=== PATIENT | female | born 1945 | race Caucasian/White ===

== ENCOUNTER 2016-09-25 15:45 | Emergency (ER) | payer MEDICARE ==
[2016-09-25] MEDS ORDERED: BABY ASPIRIN 81 MG CHEW PO ONE (15:55)
[2016-09-25 16:01] LABS: BASOPHIL % 0.2 % (0.0-0.4); Eosinophil % 7.9 % (0.00-5.0); Granulocytes % 47.6 % (36.0-66.0); Lymphocytes % 33.4 % (24.0-44.0); Mean Cell Volume 84.7 fl (78-100); Mean Corpuscular Hemoglobin 29.4 pg (26-32); Mean Platelet Volume 9.7 fl (6-9.5); Monocytes % 10.9 % (0.0-12.0); Platelet Count 201 K/mm3 (150-450); Red Blood Count 4.25 M/mm3 (4.1-5.4); Red Cell Distribution Width 13.2 % (11.5-14.0); White Blood Count 5.1 K/mm3 (4.0-10.5)
--- NOTE | 2016-09-25 16:01 | ERPHSYRPT ---
<EMMANUEL CERRATO - Last Filed: 09/25/16 18:56> - History of Present Illness Time Seen by Provider: 09/25/16 15:55 Historian: patient, family (daughter) Physician History: CC:Chest pain Hx: 71 y/o patient of Dr Borden/Corina. She has hx of HTN, PRESS syndrome. She has recent burning in left chest associated with exertion or movement of the arm. Not short of breath. Intermittent. Last a few minutes at a time. No hx of heart problems. No current pain. Timing/Duration: day(s) (few ), intermittent Quality: burning, sharpness Chest Pain Radiation: arm Severity of Pain-Max: moderate Severity of Pain-Current: moderate Aspirin Treatment Today: 81 mg x 2, provided by ED Allergies/Adverse Reactions: cefaclor [From Ceclor] Allergy (Mild, Verified 09/25/16 16:11) Home Medications: Amitriptyline HCl [Elavil] 50 mg PO HS 12/09/12 [History] Atorvastatin Calcium [Lipitor] 80 mg PO HS 12/09/12 [History] Letrozole [Femara] 2.5 mg PO HS 12/09/12 [History] Paroxetine HCl [Paxil] 10 mg PO DAILY 12/09/12 [History] Carvedilol 6.25 mg [Coreg 6.25 MG] 6.25 mg PO BID 09/25/16 [History] Levothyroxine Sodium 25 Mcg [Synthroid 25 Mcg] 25 mcg PO DAILY 09/25/16 [ History] Quetiapine Fumarate [Seroquel] 100 mg PO HS 09/25/16 [History] Valsartan/Hydrochlorothiazide [Valsartan-Hctz 160-12.5 mg Tab] 1 tablet PO BID 09/25/16 [History] Hx Tetanus, Diphtheria Vaccination/Date Given: No Hx Influenza Vaccination/Date Given: Yes Hx Pneumococcal Vaccination/Date Given: No - Review of Systems Constitutional: No Fever, No Chills Eyes: No Symptoms Ears, Nose, & Throat: No Symptoms Respiratory: No Cough, No Dyspnea Cardiac: Chest Pain, No Edema, No Syncope Abdominal/Gastrointestinal: No Abdominal Pain, No Nausea, No Vomiting Musculoskeletal: No Back Pain Skin: No Rash Neurological: No Headache All Other Systems: Reviewed and Negative - Past Medical History Pertinent Past Medical History: Yes Neurological History: No Pertinent History Cardiac History: High Cholesterol Respiratory History: No Pertinent History Endocrine Medical History: Hypothyroidism Musculoskeletal History: Degenerative Disk Disease GI Medical History: No Pertinent History History: No Pertinent History Psycho-Social History: Other Female Reproductive Disorders: Breast Cancer Other Medical History: Breast CA. Bilateral mastectomy - Past Surgical History Past Surgical History: Yes Gastrointestinal: Cholecystectomy Female Surgical History: Mastectomy Other Surgical History: carpal tunnel. back surgery due to scoliosis - Social History Smoking Status: Never smoker Exposure to second hand smoke: No Drug Use: none Patient Lives Alone: No - Physical Exam General Appearance: alert Eye Exam: PERRL/EOMI Ears, Nose, Throat Exam: normal ENT inspection, moist mucous membranes Neck Exam: normal inspection, non-tender, supple Respiratory Exam: normal breath sounds, lungs clear Cardiovascular Exam: regular rate/rhythm Gastrointestinal/Abdomen Exam: soft, No tenderness, No distention Back Exam: normal inspection, normal range of motion Extremity Exam: normal inspection, normal range of motion Neurologic Exam: alert, oriented x 3, cooperative, sensation nml, No motor deficits Skin Exam: warm, dry, No rash - Course Nursing assessment & vital signs reviewed: Yes EKG Interpreted by Me: RATE (82), Sinus Rhythm, NORMAL AXIS, Right Bundle Branch Block (presumed old per family) Ordered Tests: Active Orders 24 hr Category Date Time Status Sales Operations Analyst STAT Care 09/25/16 15:55 Active EKG-ER Only STAT Care 09/25/16 15:55 Active IV Insertion STAT Care 09/25/16 15:55 Active Pulse Oximetry (ED) STAT Care 09/25/16 15:55 Active CHEST 1 VIEW (PORTABLE) Stat Exams 09/25/16 15:55 Completed CBC W DIFF Stat Lab 09/25/16 15:59 Completed CMP Stat Lab 09/25/16 15:59 Completed TROPONIN Q3H Lab 09/25/16 15:59 Completed TROPONIN Q3H Lab 09/25/16 19:00 Completed TROPONIN Q3H Lab 09/25/16 22:00 Ordered TROPONIN Q3H Lab 09/26/16 01:00 Ordered TROPONIN Q3H Lab 09/26/16 04:00 Ordered Medication Summary Discontinued Medications Generic Name Dose Route Start Last Admin Trade Name Freq PRN Reason Stop Dose Admin Aspirin 162 mg 09/25/16 15:55 09/25/16 16:05 Baby Aspirin 81 Mg Chew PO 09/25/16 15:56 162 mg STAT ONE Administration Aspirin Confirm 09/25/16 16:03 Baby Aspirin 81 Mg Chew Administered 09/25/16 16:04 Dose 162 mg .ROUTE .STK-MED ONE Famotidine 20 mg 09/25/16 16:48 09/25/16 16:59 Pepcid 20 Mg Vial IV 09/25/16 16:49 20 mg STAT ONE Administration Famotidine Confirm 09/25/16 16:50 Pepcid 20 Mg Vial Administered 09/25/16 16:51 Dose 20 mg IV .STK-MED ONE Lab/Rad Data: Laboratory Result Diagrams 09/25/16 15:59 09/25/16 15:59 Laboratory Results 09/25/16 09/25/16 09/25/16 Range/Units 19:00 15:59 15:59 WBC (4.0-10.5) K/mm3 RBC (4.1-5.4) M/mm3 Hgb (12.0-16.0) gm/dl Hct (35-47) % MCV (78-100) fl MCH (26-32) pg MCHC (32-36) g/dl RDW (11.5-14.0) % Plt Count (150-450) K/mm3 MPV (6-9.5) fl Gran % (36.0-66.0) % Lymphocytes % (24.0-44.0) % Monocytes % (0.0-12.0) % Eosinophils % (0.00-5.0) % Basophils % (0.0-0.4) % Basophils # (0-0.4) Sodium 141 (136-145) mEq/L Potassium 3.8 (3.5-5.1) mEq/L Chloride 107 (98-107) mEq/L Carbon Dioxide 27.3 (21-32) mEq/L Anion Gap 10.1 (5-15) MEQ/L BUN 22 H (9-20) mg/dL Creatinine 0.87 (0.55-1.30) mg/dl Estimated GFR > 60 ML/MIN Glucose 92 (70-110) MG/DL Calcium 8.8 (8.5-10.1) mg/dL Total Bilirubin 0.7 (0.2-1.0) mg/dL AST 32 (15-37) U/L ALT 45 (12-78) U/L Alkaline Phosphatase 93 (46-116) U/L Troponin I < 0.017 < 0.017 (0.000-0.056) ng/ml Serum Total Protein 7.0 (6.4-8.2) gm/dL Albumin 3.8 (3.4-5.0) g/dL 09/25/16 Range/Units 15:59 WBC 5.1 (4.0-10.5) K/mm3 RBC 4.25 (4.1-5.4) M/mm3 Hgb 12.5 (12.0-16.0) gm/dl Hct 36.0 (35-47) % MCV 84.7 (78-100) fl MCH 29.4 (26-32) pg MCHC 34.7 (32-36) g/dl RDW 13.2 (11.5-14.0) % Plt Count 201 (150-450) K/mm3 MPV 9.7 H (6-9.5) fl Gran % 47.6 (36.0-66.0) % Lymphocytes % 33.4 (24.0-44.0) % Monocytes % 10.9 (0.0-12.0) % Eosinophils % 7.9 H (0.00-5.0) % Basophils % 0.2 (0.0-0.4) % Basophils # 0.01 (0-0.4) Sodium (136-145) mEq/L Potassium (3.5-5.1) mEq/L Chloride (98-107) mEq/L Carbon Dioxide (21-32) mEq/L Anion Gap (5-15) MEQ/L BUN (9-20) mg/dL Creatinine (0.55-1.30) mg/dl Estimated GFR ML/MIN Glucose (70-110) MG/DL Calcium (8.5-10.1) mg/dL Total Bilirubin (0.2-1.0) mg/dL AST (15-37) U/L ALT (12-78) U/L Alkaline Phosphatase (46-116) U/L Troponin I (0.000-0.056) ng/ml Serum Total Protein (6.4-8.2) gm/dL Albumin (3.4-5.0) g/dL - Progress Progress Note: 09/25/16 16:25 Procedures: [id number] RAD/CHEST 1 VIEW (PORTABLE) Indication: Chest pain. Comparison: None Portable chest demonstrates normal heart and lungs. Bony thorax intact with elongated thoracolumbar dextroscoliosis and multilevel spinal hardware. Reported by: SLY LESLIE DO Signed by: SLY LESLIE DO Signed date/ time: 09/25/16 1615 09/25/16 16:57 Patient remains pain free. Troponin negative. Called Dr Aguilar her private director acute and he agrees with 3 hour troponin and office follow up if stable. 09/25/16 18:56 Pt stable. Await 3 hour troponin. If negative will release with instructions to follow up with Dr Aguilar. Counseled pt/family regarding: lab results, diagnosis, need for follow-up, rad results - Departure Departure Disposition: Home Clinical Impression: Atypical chest pain Condition: Stable Critical Care Time: No Referrals: SERGIO BORDEN MD [Primary Care Provider] - DOUGLAS AGUILAR MD [NON-STAFF PHY W/O PRIVILEGES] - Instructions: Chest Pain Additional Instructions: Call tomorrow to see Dr Aguilar. Take baby asa daily. Return for problems or concerns. <TRISTEN DIAZ. - Last Filed: 09/25/16 19:33> - Progress Progress: unchanged Air Movement: good Progress Note: 09/25/16 19:31 Pt care discussed with Dr. Cerrato and care accepted at 19:00. Counseled pt/family regarding: lab results, diagnosis, rad results - Departure Time of Disposition: 19:33 Departure Disposition: Home Critical Care Time: No
[2016-09-25] MEDS ORDERED: BABY ASPIRIN 81 MG CHEW ONE (16:03)
--- NOTE | 2016-09-25 16:15 | XRAY ---
Indication: Chest pain. Comparison: None Portable chest demonstrates normal heart and lungs. Bony thorax intact with elongated thoracolumbar dextroscoliosis and multilevel spinal hardware.
[2016-09-25 16:23] LABS: ALBUMIN 3.8 g/dL (3.4-5.0); ALKALINE PHOSPHATASE 93 U/L (46-116); ANION GAP 10.1 MEQ/L (5-15); BILIRUBIN,TOTAL 0.7 mg/dL (0.2-1.0); BLOOD UREA NITROGEN 22 mg/dL (9-20); CHLORIDE 107 mEq/L (98-107); Carbon Dioxide 27.3 mEq/L (21-32); Glucose 92 MG/DL (70-110); Potassium 3.8 mEq/L (3.5-5.1); SGOT/AST 32 U/L (15-37); SGPT/ALT 45 U/L (12-78); SODIUM 141 mEq/L (136-145)
[2016-09-25] MEDS ORDERED: Pepcid 20 MG VIAL IV ONE ×2 (16:48→16:50)
[2016-09-25 19:36] VITALS: BP 139/68; PULSE 67; O2SAT 99
== END 2016-09-25 19:39 | disposition home or self-care (01) ==
LOC: ED 15:45
DX: R07.89 Other chest pain (principal); E78.00 Pure hypercholesterolemia, unspecified; E03.9 Hypothyroidism, unspecified; I10 Essential (primary) hypertension; Z79.899 Other long term (current) drug therapy
CPT/HCPCS: 36000; 36415; 71010; 80053; 84484; 85025; 93005; 93041; 96374; 99284

== ENCOUNTER 2017-02-19 06:23 | Emergency (ER) | payer MEDICARE ==
[2017-02-19] MEDS ORDERED: Nitrostat 0.4 MG (ED) SL ONE ×2 (06:37→06:43)
[2017-02-19] MEDS ORDERED: BABY ASPIRIN 81 MG CHEW PO ONE (06:37)
[2017-02-19] MEDS ORDERED: Sodium Chloride 0.9% 1000 ML 1,000 ML ONE (06:43)
[2017-02-19] MEDS ORDERED: BABY ASPIRIN 81 MG CHEW ONE (06:43)
[2017-02-19] MEDS ORDERED: Sodium Chloride 0.9% 1000 ML 1,000 ML IV SCH (06:45)
--- NOTE | 2017-02-19 06:50 | ERPHSYRPT ---
<CHARLI GOMES - Last Filed: 02/19/17 08:30> - History of Present Illness Historian: patient, family (daughter) Patient Subjective Stated Complaint: pt states she woke up with chest pain. states pain is wore and goes into lt shoulder when she moves or tries to get up. Triage Nursing Assessment: pt alert and oriented, answers questions approp. pt ambulatory with steady gait noted. respirations nonlabored with lungs cta. Physician History: Prostate 30 minutes prior to admission patient with severe chest pain primarily in the left also somewhat tender right. Feels worse with moving around turning twisting sitting up. Pain is much worse than her ER admission September 25 of this year at which time she had acute coronary syndrome ruled out with repeat troponins and was sent to Dr. Frye her flooring installer for further evaluation and treatment. No nausea or vomiting. No radiation. No shortness of breath. Took baby aspirin yesterday morning. History of hypertension and PRESS syndrome. Timing/Duration: today Activities at Onset: none Quality: cramping Location: other ( ABOVE) Chest Pain Radiation: no radiation Severity of Pain-Max: severe Severity of Pain-Current: moderate Modifying Factors: Improves With: exertion, movement, sitting up, change in position Associated Symptoms: No nausea, No vomiting, No palpitations, No heartburn Allergies/Adverse Reactions: cefaclor [From Ceclor] Allergy (Mild, Verified 02/19/17 06:48) Home Medications: Amitriptyline HCl [Elavil] 50 mg PO HS 12/09/12 [History] Atorvastatin Calcium [Lipitor] 80 mg PO HS 12/09/12 [History] Letrozole [Femara] 2.5 mg PO HS 12/09/12 [History] Paroxetine HCl [Paxil] 10 mg PO DAILY 12/09/12 [History] Carvedilol 6.25 mg [Coreg 6.25 MG] 6.25 mg PO BID 09/25/16 [History] Levothyroxine Sodium 25 Mcg [Synthroid 25 Mcg] 25 mcg PO DAILY 09/25/16 [ History] Quetiapine Fumarate [Seroquel] 50 mg PO HS 09/25/16 [History] Valsartan 160 mg PO BID 02/19/17 [History] Hx Tetanus, Diphtheria Vaccination/Date Given: No Hx Influenza Vaccination/Date Given: Yes Hx Pneumococcal Vaccination/Date Given: Yes Immunizations Up to Date: Yes - Review of Systems Constitutional: No Symptoms Eyes: No Symptoms Ears, Nose, & Throat: No Symptoms Respiratory: No Symptoms Cardiac: Chest Pain (NO HISTORY OF PRESENT ILLNESS) Abdominal/Gastrointestinal: No Symptoms Genitourinary Symptoms: No Symptoms Musculoskeletal: No Symptoms Skin: No Symptoms Neurological: No Symptoms Psychological: No Symptoms Endocrine: No Symptoms Hematologic/Lymphatic: No Symptoms Immunological/Allergic: No Symptoms - Past Medical History Pertinent Past Medical History: Yes Neurological History: Other (Radha) ENT History: No Pertinent History Cardiac History: High Cholesterol Respiratory History: No Pertinent History Endocrine Medical History: Hypothyroidism Musculoskeletal History: Degenerative Disk Disease GI Medical History: No Pertinent History History: No Pertinent History Psycho-Social History: Other Female Reproductive Disorders: Breast Cancer Other Medical History: Breast CA. Bilateral mastectomy - Past Surgical History Past Surgical History: Yes Gastrointestinal: Cholecystectomy Female Surgical History: Mastectomy (BILATERAL) Other Surgical History: carpal tunnel. back surgery due to scoliosis - Social History Smoking Status: Never smoker Exposure to second hand smoke: No Drug Use: none Patient Lives Alone: No - Nursing Vital Signs Nursing Vital Signs: Initial Vital Signs Pulse Rate 76 02/19/17 06:34 Respiratory Rate 16 02/19/17 06:34 Blood Pressure 156/59 02/19/17 06:34 O2 Sat by Pulse Oximetry 99 02/19/17 06:34 Pain Scale Pain Intensity 0 - Physical Exam General Appearance: moderate distress (CLUTCHING CHEST CONTINUOUSLY) Eye Exam: PERRL/EOMI Ears, Nose, Throat Exam: normal ENT inspection Neck Exam: normal inspection Respiratory Exam: normal breath sounds, lungs clear, airway intact, other ( BILATERAL MASTECTOMY POSTOP) Cardiovascular Exam: regular rate/rhythm, normal heart sounds, capillary refill <2 sec Gastrointestinal/Abdomen Exam: soft, normal bowel sounds, No tenderness, No distention, No mass, No guarding Pelvic Exam: not done Rectal Exam: deferred Back Exam: normal range of motion (SCOLIOSIS TO THE RIGHT WITH LARGE SURGICAL SCAR), other Extremity Exam: normal inspection, normal range of motion Neurologic Exam: alert, oriented x 3, cooperative Skin Exam: normal color, warm, dry, No rash, No petechiae, No jaundice Lymphatic Exam: No adenopathy SpO2 Interpretation: normal SpO2: 99 Oxygen Delivery: Room Air - Course EKG Interpreted by Me: RATE (76), Sinus Rhythm, Right Bundle Branch Block, Non- specific ST Changes, Other (indeterminate axis and slightly elevated QTC at [address]-T wav some associated with right bundle No change to EKG on 09/25/16 and no acute changes) - Radiology Exams Chest X-ray Interpretation: Interpreted by me, Other (NO ACUTE FINDINGS,POSTOP VERTEBRAL SURGICAL CHANGES) Ordered Tests: Active Orders 24 hr Category Date Time Status Under Ground Miner STAT Care 02/19/17 06:38 Active EKG-ER Only STAT Care 02/19/17 06:37 Active IV Insertion STAT Care 02/19/17 06:37 Active Pulse Oximetry (ED) STAT Care 02/19/17 06:37 Active CHEST 1 VIEW (PORTABLE) Stat Exams 02/19/17 06:38 Completed CBC W DIFF Stat Lab 02/19/17 06:52 Completed CMP Stat Lab 02/19/17 06:52 Completed D-DIMER QUANTITATION Stat Lab 02/19/17 06:52 Completed MAGNESIUM Stat Lab 02/19/17 06:52 Completed PROTIME WITH INR Stat Lab 02/19/17 06:52 Completed PTT Stat Lab 02/19/17 06:52 Completed TROPONIN Q3H Lab 02/19/17 06:52 Completed TROPONIN Q3H Lab 02/19/17 10:05 Completed TROPONIN Q3H Lab 02/19/17 12:45 Ordered TROPONIN Q3H Lab 02/19/17 15:45 Ordered TROPONIN Q3H Lab 02/19/17 18:45 Ordered Medication Summary Generic Name Dose Route Start Last Admin Trade Name Freq PRN Reason Stop Dose Admin Sodium Chloride 1,000 mls @ 100 mls/hr 02/19/17 06:45 02/19/17 06:44 Sodium Chloride 0.9% 1000 Ml IV 03/21/17 06:44 100 mls/hr .Q10H ANAYELI Administration Discontinued Medications Generic Name Dose Route Start Last Admin Trade Name Freq PRN Reason Stop Dose Admin Acetaminophen 650 mg 02/19/17 08:51 02/19/17 08:57 Tylenol 325 Mg PO 02/19/17 08:52 650 mg STAT ONE Administration Acetaminophen Confirm 02/19/17 08:54 Tylenol 325 Mg Administered 02/19/17 08:55 Dose 650 mg .ROUTE .STK-MED ONE Aspirin 324 mg 02/19/17 06:37 02/19/17 06:44 Baby Aspirin 81 Mg Chew PO 02/19/17 06:38 324 mg STAT ONE Administration Aspirin Confirm 02/19/17 06:43 Baby Aspirin 81 Mg Chew Administered 02/19/17 06:44 Dose 324 mg .ROUTE .STK-MED ONE Nitroglycerin 0.4 mg 02/19/17 06:37 02/19/17 06:44 Nitrostat 0.4 Mg (Ed) SL 02/19/17 06:38 0.4 mg STAT ONE Administration Nitroglycerin Confirm 02/19/17 06:43 Nitrostat 0.4 Mg (Ed) Administered 02/19/17 06:44 Dose 0.4 mg SL .STK-MED ONE Nitroglycerin 1 gm 02/19/17 07:25 02/19/17 07:27 Nitro-Bid 2% Ud Packets TOP 02/19/17 07:26 1 gm STAT ONE Administration Nitroglycerin Confirm 02/19/17 07:26 Nitro-Bid 2% Ud Packets Administered 02/19/17 07:27 Dose 1 gm .ROUTE .STK-MED ONE Lab/Rad Data: Laboratory Result Diagrams 02/19/17 06:52 02/19/17 06:52 Laboratory Results 02/19/17 02/19/17 02/19/17 Range/Units 10:05 06:52 06:52 WBC (4.0-10.5) K/mm3 RBC (4.1-5.4) M/mm3 Hgb (12.0-16.0) gm/dl Hct (35-47) % MCV (78-100) fl MCH (26-32) pg MCHC (32-36) g/dl RDW (11.5-14.0) % Plt Count (150-450) K/mm3 MPV (6-9.5) fl Gran % (36.0-66.0) % Lymphocytes % (24.0-44.0) % Monocytes % (0.0-12.0) % Eosinophils % (0.00-5.0) % Basophils % (0.0-0.4) % Basophils # (0-0.4) INR 0.93 (0.8-3.0) APTT 30.3 (25.3-37.0) SECONDS D-Dimer 314 (0-500) ng/mL Sodium (136-145) mEq/L Potassium (3.5-5.1) mEq/L Chloride (98-107) mEq/L Carbon Dioxide (21-32) mEq/L Anion Gap (5-15) MEQ/L BUN (9-20) mg/dL Creatinine (0.55-1.30) mg/dl Estimated GFR ML/MIN Glucose (70-110) MG/DL Calcium (8.5-10.1) mg/dL Magnesium (1.8-2.4) mg/dL Total Bilirubin (0.2-1.0) mg/dL AST (15-37) U/L ALT (12-78) U/L Alkaline Phosphatase (46-116) U/L Troponin I < 0.017 < 0.017 (0.000-0.056) ng/ml Serum Total Protein (6.4-8.2) gm/dL Albumin (3.4-5.0) g/dL 02/19/17 02/19/17 Range/Units 06:52 06:52 WBC 5.6 (4.0-10.5) K/mm3 RBC 4.52 (4.1-5.4) M/mm3 Hgb 13.0 (12.0-16.0) gm/dl Hct 38.0 (35-47) % MCV 84.1 (78-100) fl MCH 28.8 (26-32) pg MCHC 34.2 (32-36) g/dl RDW 12.7 (11.5-14.0) % Plt Count 220 (150-450) K/mm3 MPV 9.9 H (6-9.5) fl Gran % 46.1 (36.0-66.0) % Lymphocytes % 35.6 (24.0-44.0) % Monocytes % 11.0 (0.0-12.0) % Eosinophils % 6.8 H (0.00-5.0) % Basophils % 0.5 (0.0-0.4) % Basophils # 0.03 (0-0.4) INR (0.8-3.0) APTT (25.3-37.0) SECONDS D-Dimer (0-500) ng/mL Sodium 141 (136-145) mEq/L Potassium 3.4 L (3.5-5.1) mEq/L Chloride 104 (98-107) mEq/L Carbon Dioxide 28.0 (21-32) mEq/L Anion Gap 12.0 (5-15) MEQ/L BUN 26 H (9-20) mg/dL Creatinine 0.79 (0.55-1.30) mg/dl Estimated GFR > 60 ML/MIN Glucose 108 (70-110) MG/DL Calcium 9.2 (8.5-10.1) mg/dL Magnesium 2.1 (1.8-2.4) mg/dL Total Bilirubin 0.80 (0.2-1.0) mg/dL AST 41 H (15-37) U/L ALT 54 (12-78) U/L Alkaline Phosphatase 93 (46-116) U/L Troponin I (0.000-0.056) ng/ml Serum Total Protein 7.1 (6.4-8.2) gm/dL Albumin 3.6 (3.4-5.0) g/dL - Progress Progress: improved, re-examined Air Movement: good Progress Note: 02/19/17 07:59Patient's pain level is virtually 0 at rest, to the bathroom and then when she went to lay back down on the ER room cart had exacerbation of pulling and pain in her chest which then was alleviated by laying still. Cardiac workup at this point is negative. Her old record is reviewed from in case was discussed with Dr. Cerrato who will assume her care at this time with plan repeat troponin. Patient and daughter are in agreement with this. Discussed with Dr.: Other (DIMAS) - Departure Clinical Impression: Atypical chest pain Condition: Stable Referrals: DOUGLAS FRYE MD [NON-STAFF PHY W/O PRIVILEGES] - Instructions: Chest Pain Additional Instructions: Stree cardiolyte thru Dr Frye office as scheduled. Return for problems or concerns. Take prilosec OTC 20mg daily for 2 weeks. Arrange follow up with Dr Frye. Prescriptions: Omeprazole 20 MG [Prilosec 20 mg] 20 mg PO DAILY #14 capsule. <EMMANUEL CERRATO - Last Filed: 08/15/17 11:13> - History of Present Illness Aspirin Treatment Today: provided by ED - Progress Progress Note: 02/19/17 08:52 Pt was initially seen per Dr Gomes. She reports chest pain, anterior, aching across her chest this AM. IT is worse with movement, turning, or touch. No rash. Not short of breath. No hx of heart disease. She has no exertional symptoms and in fact uses an exercise bike for 60 minutes daily without symptoms. She sees Dr Frye. Has not had cardiac stress testing. She has hx of scoliosis surgery and bilateral mastectomy. PE: alert, chest clear, cor reg without rub. No extr edema or calf tenderness. PLan: await 3 hour troponin and will contact Dr Frye her flooring installer. Will remove NTG paste and given APAP as this suggests musculoskeletel etiology. Pt and family aware and agree with plan. 02/19/17 11:10 The patient is stable. Pain only when she twists her body. Repeat troponin undetectable. She has old RBBB on EKG. She prefers to go home. Called her flooring installer Dr Frye who advised OP follow up, stress cardiolyte in office and OTC prilosec. Will release with instr. Counseled pt/family regarding: lab results, diagnosis, need for follow-up, rad results - Departure Time of Disposition: 11:11 Departure Disposition: Home Critical Care Time: No
[2017-02-19 06:57] LABS: BASOPHIL % 0.5 % (0.0-0.4); Eosinophil % 6.8 % (0.00-5.0); Granulocytes % 46.1 % (36.0-66.0); Lymphocytes % 35.6 % (24.0-44.0); Mean Cell Volume 84.1 fl (78-100); Mean Corpuscular Hemoglobin 28.8 pg (26-32); Mean Platelet Volume 9.9 fl (6-9.5); Platelet Count 220 K/mm3 (150-450); Red Blood Count 4.52 M/mm3 (4.1-5.4); Red Cell Distribution Width 12.7 % (11.5-14.0); White Blood Count 5.6 K/mm3 (4.0-10.5)
[2017-02-19 07:18] LABS: INR 0.93 (0.8-3.0); PROTIME 10.5 SECONDS (9.95-12.35)
[2017-02-19 07:21] LABS: PTT 30.3 SECONDS (25.3-37.0)
[2017-02-19] MEDS ORDERED: NITRO-BID 2% UD PACKETS TOP ONE (07:25)
[2017-02-19] MEDS ORDERED: NITRO-BID 2% UD PACKETS ONE (07:26)
[2017-02-19 07:27] LABS: ALBUMIN 3.6 g/dL (3.4-5.0); ALKALINE PHOSPHATASE 93 U/L (46-116); BLOOD UREA NITROGEN 26 mg/dL (9-20); CHLORIDE 104 mEq/L (98-107); Glucose 108 MG/DL (70-110); MAGNESIUM 2.1 mg/dL (1.8-2.4); Potassium 3.4 mEq/L (3.5-5.1); SGOT/AST 41 U/L (15-37); SGPT/ALT 54 U/L (12-78); SODIUM 141 mEq/L (136-145); Total Protein 7.1 gm/dL (6.4-8.2)
[2017-02-19] MEDS ORDERED: TYLENOL 325 MG PO ONE (08:51)
[2017-02-19] MEDS ORDERED: TYLENOL 325 MG ONE (08:54)
--- NOTE | 2017-02-19 09:22 | XRAY ---
Indication: Chest pain. Comparison: September 25, 2016. Portable chest again demonstrates normal heart and lungs. Bony thorax intact with again thoracolumbar dextroscoliosis with multilevel spinal hardware.
[2017-02-19 09:55] VITALS: O2SAT 99
[2017-02-19 13:03] VITALS: BP 163/58; PULSE 82
== END 2017-02-19 13:59 | disposition home or self-care (01) ==
LOC: ED 06:23
DX: R07.89 Other chest pain (principal)
CPT/HCPCS: 36000; 36415; 71010; 80053; 83735; 84484; 85025; 85379; 85610; 85730; 93005; 93041; 96360; 99284; A9270-GY